=== PATIENT | female | born 1945 | race Caucasian/White ===

== ENCOUNTER 2023-04-16 12:15 | Emergency (ER) | payer MEDICARE, BC ==
[~2023-04-16] VITALS: Ht 172.7 cm; Wt 66.2 kg
[2023-04-16 12:27] VITALS: BP 141/80; TEMP 98.8; O2SAT 98
[2023-04-16] MEDS ORDERED: IBUP-1955 PO (13:17)
== END 2023-04-16 13:40 | disposition home or self-care (01) ==
LOC: ER 12:27
DX: S63.690A Other sprain of right index finger, initial encounter (principal); W01.0XXA Fall on same level from slipping, tripping and stumbling without subsequent striking against object, initial encounter; Y93.89 Activity, other specified; Y92.89 Other specified places as the place of occurrence of the external cause; Y99.8 Other external cause status
CPT/HCPCS: 73130-TC